=== PATIENT | female | born 1950 | race Caucasian/White ===

== ENCOUNTER 2016-11-03 15:52 | Emergency (ER) | payer MEDICARE, OTHER ==
[~2016-11-03] VITALS: Ht 165.1 cm; Wt 58.5 kg
[~2016-11-03 15:52] MED LIST: ASPI-664 PO; BACTDS PO; BLOOD PRESSURE MEDS; DIABETIC MEDS; IBUP400T22 PO; NEOM28OI TOP; [UNRECOGNIZED DRUG - REMARK]
[2016-11-03 15:54] VITALS: Ht 165.1 cm; Wt 58.5 kg
[2016-11-03] MEDS ORDERED: IBUPROFEN 200 MG TAB PO ONE (16:30)
[2016-11-03] MEDS ORDERED: traMADol 50 MG TAB PO ONE (16:30)
[2016-11-03] MEDS ORDERED: CEPHALEXIN 500 MG CAP PO ONE (16:30)
[2016-11-03] MEDS ORDERED: TRAM-40 PO (16:32)
[2016-11-03] MEDS ORDERED: IBUP400T22 PO (16:32)
[2016-11-03] MEDS ORDERED: CEPH-443 PO (16:32)
--- NOTE | 2016-11-03 16:36 | ERD ---
ER Documentation Chief Complaint Date/Time DATE: 11/03/16 TIME: 16:34 Chief Complaint Complains of right jaw and facial pain x 3 days HPI 66-year-old female presents with pain in the right upper dental area for last 3 days. She denies any cough, shortness breath or chest pain. She may have had tactile fever. ROS All systems reviewed and are negative except as per history of present illness. Medications Home Meds Active Scripts Tramadol Hcl* (Ultram*) 50 Mg Tablet, 50 MG PO Q6H Y for PAIN, #15 TAB Prov:COLLIN MORE MD 11/03/16 Ibuprofen* (Motrin*) 400 Mg Tab, 400 MG PO Q6, #20 TAB Prov:COLLIN MORE MD 11/03/16 Cephalexin* (Keflex*) 500 Mg Capsule, 500 MG PO QID for 10 Days, CAP Prov:COLLIN MORE MD 11/03/16 Neomycin-Bacitrac Zinc-Polymyxin (Triple Antibiotic Ointment*) 28.35 Gm Oint..gm., 1 APPLIC TOP TID for 7 Days, EA Prov:COLLIN MORE MD 10/17/15 Ibuprofen* (Ibuprofen*) 400 Mg Tablet, 400 MG PO Q6H Y for PAIN, #15 TAB Prov:COLLIN MORE MD 10/17/15 Sulfamethoxazole-Trimethoprim* (Bactrim* DS) 800-160 Mg Tab, 1 TAB PO BID for 7 Days, TAB Prov:COLLIN MORE MD 10/17/15 Reported Medications Aspirin* (Aspirin* EC) 81 Mg Tablet.dr, 81 MG PO DAILY, TAB 11/17/14 [Diabetic Meds] No Conflict Check, DAILY 11/17/14 [Blood Pressure Meds] No Conflict Check, DAILY 11/17/14 [Unknown Htn Meds] No Conflict Check 11/05/11 Allergies Allergies: Coded Allergies: No Known Allergy (Unverified , 11/05/11) PMhx/Soc History of Surgery: Yes (Gallbladder procedure, Vein laser treatment.) Anesthesia Reaction: No Hx Neurological Disorder: No Hx Respiratory Disorders: No Hx Cardiac Disorders: Yes (HTN) Hx Psychiatric Problems: No Hx Miscellaneous Medical Probl: No Hx Alcohol Use: No Hx Substance Use: No Hx Tobacco Use: No Smoking Status: Never smoker Physical Exam Vitals Vital Signs Date Time Temp Pulse Resp B/P Pulse Ox O2 Delivery O2 Flow Rate FiO2 11/03/16 15:54 98.8 99 20 171/80 99 Physical Exam Const: [] Letter, [id number]. Head: Atraumatic Eyes: Normal Conjunctiva ENT: Normal External Ears, Nose and Mouth. Patient has poor dentition. There is tenderness primarily at the base of the right upper canine and first molar area. There is some mild swelling. Is no appreciable significant facial induration or erythema or warmth. Is no fluctuance. Airways patent. Neck: Full range of motion..~ No meningismus. Resp: Clear to auscultation bilaterally Cardio: Regular rate and rhythm, no murmurs Abd: Soft, non tender, non distended. Normal bowel sounds Skin: No petechiae or rashes Back: No midline or flank tenderness Ext: No cyanosis, or edema Neur: Awake and alert Psych: Normal Mood and Affect Results 24 hrs Current Medications Medications (Trade) Dose Ordered Sig/Nayely Route PRN Reason Start Time Stop Time Status Last Admin Dose Admin Cephalexin (Keflex) 500 mg ONCE ONCE PO 11/03/16 16:30 11/03/16 16:31 DC 11/03/16 16:33 Ibuprofen (Motrin) 400 mg ONCE ONCE PO 11/03/16 16:30 11/03/16 16:31 DC 11/03/16 16:33 Tramadol HCl (Ultram) 50 mg ONCE ONCE PO 11/03/16 16:30 11/03/16 16:31 DC 11/03/16 16:33 Procedures/MDM Patient presents with right upper facial pain with localization to the right upper first molar and canine area likely dental etiology. She will treated with Keflex tramadol and ibuprofen and dental follow-up. The patient was stable with no new complaints during the ER course. Clinically, there is no current evidence to suggest meningitis, sepsis, acute abdomen, pneumonia, acute coronary syndrome, pulmonary embolism, or any other emergent condition appearing to require further evaluation or hospitalization. The patient should certainly return for any new or worsening symptoms per the aftercare instructions. They should otherwise follow-up with her primary care doctor for reevaluation this week. Departure Diagnosis: Primary Impression: Hypertension Hypertension type: essential hypertension Qualified Code: I10 - Essential hypertension Additional Impression: Pain, dental Condition: Stable Patient Instructions: High Blood Pressure (Hypertension), Dental Pain Additional Instructions: See dentist for further evaluation and treatment. Recheck otherwise for new or worsening symptoms. COLLIN MORE MD Nov 03, 2016 16:35
== END 2016-11-03 16:52 | disposition home or self-care (01) ==
LOC: FTE 15:52
DX: I10 Essential (primary) hypertension (principal); K08.89 Other specified disorders of teeth and supporting structures; Z79.82 Long term (current) use of aspirin
CPT/HCPCS: 99284

== ENCOUNTER 2017-03-03 09:42 | Emergency (ER) | payer MEDICARE, OTHER ==
[~2017-03-03] VITALS: Ht 160 cm; Wt 60.0 kg
[~2017-03-03 09:42] MED LIST changes: +CEPH-443 PO; +TRAM-40 PO
[2017-03-03 09:44] VITALS: Ht 160 cm; Wt 60.0 kg
== END 2017-03-03 15:00 | disposition left against medical advice (07) ==
LOC: E/R 09:42
DX: Z53.21 Procedure and treatment not carried out due to patient leaving prior to being seen by health care provider (principal)